=== PATIENT | female | born 1995 | race Caucasian/White ===

== ENCOUNTER 2017-04-15 10:20 | Inpatient (IN) | payer MEDICAID ==
[2017-04-15] MEDS ORDERED: RINGERS SOLUTION,LACTATED 1,000 ML IV PRN (10:43)
[2017-04-15] MEDS ORDERED: PENICILLIN G POTASSIUM 5,000,000 UNIT in DEXTROSE 5%-WATER 100 ML IV ONE (10:43)
[2017-04-15] MEDS ORDERED: RINGERS SOLUTION,LACTATED 300 ML IV ONE (10:43)
[2017-04-15] MEDS ORDERED: OXYTOCIN/NORMAL SALINE 20 UNIT/1,000 ML RTUINJ IV PRN (10:43)
[2017-04-15 11:23] LABS: APPEARANCE,URINE CLOUDY; BILIRUBIN,URINE NEGATIVE (NEGATIVE); COLOR,URINE YELLOW; GLUCOSE, URINE NEGATIVE (NEGATIVE); KETONES,URINE NEGATIVE (NEGATIVE); LEUKOCYTE ESTERASE,URINE LARGE (NEGATIVE); NITRITE,URINE NEGATIVE (NEGATIVE); PROTEIN,URINE NEGATIVE (NEGATIVE); URINE SPECIFIC GRAVITY 1.004; UROBILINOGEN,URINE NEGATIVE mg/dL (<2.0)
[2017-04-15 11:26] LABS: ABSOLUTE BASOPHILS # (AUTO) 0.1 10^3/uL (0.0-0.2); ABSOLUTE LYMPHOCYTES (AUTO) 2.1 10^3/uL (0.5-4.7); ABSOLUTE MONOCYTES (AUTO) 0.8 10^3/uL (0.1-1.4); ABSOLUTE NEUT (AUTO) 7.9 10^3/uL (1.7-8.2); EOSINOPHILS % (AUTO) 0.3 % (0-6); HEMOGLOBIN 11.4 g/dL (12.0-15.5); LYMPHOCYTES % (AUTO) 19.3 % (13-45); MEAN CORPUSCULAR HEMOGLOBIN 31.8 pg (27.0-33.4); MEAN CORPUSCULAR HGB CONC 34.6 g/dL (32.0-36.0); MEAN CORPUSCULAR VOLUME 92 fl (80-97); MONOCYTES % (AUTO) 7.7 % (3-13); PLATELET COUNT 279 10^3/uL (150-450); RED BLOOD COUNT 3.59 10^6/uL (3.72-5.28); RED CELL DISTRIBUTION WIDTH 13.1 % (11.5-14.0); SEGMENTED NEUTROPHILS % (AUTO) 71.7 % (42-78); TOTAL CELLS COUNTED % (AUTO) 100 %
[2017-04-15 11:40] LABS: URINE AMPHETAMINES SCREEN NEGATIVE; URINE BARBITURATES SCREEN NEGATIVE; URINE BENZODIAZEPINES SCREEN NEGATIVE; URINE COCAINE SCREEN NEGATIVE; URINE MARIJUANA (THC) SCREEN NEGATIVE; URINE METHADONE SCREEN NEGATIVE; URINE PHENCYCLIDINE SCREEN NEGATIVE
[2017-04-15] MEDS ORDERED: MISOPROSTOL 0.1 MG TABLET PO ONE (11:45)
[2017-04-15] MEDS ORDERED: MISOPROSTOL 0.1 MG TABLET PV ONE (11:45)
[2017-04-15] MEDS ORDERED: MISOPROSTOL 0.1 MG TABLET ONE (12:42)
--- NOTE | 2017-04-15 15:34 | L&D Progress Notes ---
PROGRESS NOTES Datetime Report Generated by CPN: 04/15/2017 15:34 PROGRESS NOTE Comment: update FHTs 165 with average variability 200 ml iv fluid bolus afebrile uterine contractions 1-3 min with irritability will cont to monitor VAGINAL EXAM Dilatation: 1 Effacement: 50 Station: -2 MEMBRANES Membranes: Intact FETUS A Monitoring: External US FHR Category: Category I : 40.3 Presentation: Vertex SIGNATURE SIGNATURE: [id number] Assignment: Maritza Anderson MD Signature: with User ID: Harris : with User ID: Harris
--- NOTE | 2017-04-15 15:43 | L&D Progress Notes ---
PROGRESS NOTES Datetime Report Generated by CPN: 04/15/2017 15:43 PROGRESS NOTE Comment: update tracing improved after 200 cc iv fluid bolus FHTs with accelerations 155-160s average variability continue with present management FETUS C SIGNATURE: [id number] Assignment: Maritza Anderson MD Signature: with User ID: [email or web address] : with User ID: [email or web address]
--- NOTE | 2017-04-15 17:03 | L&D Progress Notes ---
PROGRESS NOTES Datetime Report Generated by CPN: 04/15/2017 17:03 PROGRESS NOTE Plan: Induction; Cervical Ripening Informed Consent Obtained: Vaginal Delivery; Risks, Benefits and Alternatives Discussed Comment: update FHts reactive cervix soft and midposition irregular contractions and irritability abdomen nontender pt may eat place cervidil at 1800 and start induction per protocol reviewed with pt VAGINAL EXAM Dilatation: 2 Effacement: 70 Station: -1 MEMBRANES Membranes: Intact FETUS A FHR - Baseline: 160 Monitoring: External US Variability: Moderate 6-25bpm Accelerations: 15X15 Decelerations: None FHR Category: Category I FETUS C SIGNATURE: [id number] Assignment: Marizta Anderson MD Signature: with User ID: [email or web address] : with User ID: Harris
--- NOTE | 2017-04-15 17:08 | L&D Progress Notes ---
PROGRESS NOTES Datetime Report Generated by CPN: 04/15/2017 17:08 PROGRESS NOTE Comment: +3 DTRs no ruq pain +2 pitting edema vss denies headaches addendum to h and p FETUS C SIGNATURE: [id number] Assignment: Maritza Anderson MD Signature: with User ID: [email or web address] : with User ID: [email or web address]
[2017-04-15] MEDS ORDERED: DINOPROSTONE 10 MG VAGINAL INSERT.SR PV PRN (19:58)
[2017-04-15] MEDS ORDERED: DINOPROSTONE 10 MG VAGINAL INSERT.SR ONE (20:01)
[2017-04-15] MEDS ORDERED: ZOLPIDEM TARTRATE 5 MG TABLET PO ONE (22:14)
[2017-04-15] MEDS ORDERED: ZOLPIDEM TARTRATE 5 MG TABLET ONE (22:16)
[2017-04-16] MEDS ORDERED: PENICILLIN G-K 5 MILLION UNIT VIAL ONE ×4 (00:22→12:36)
[2017-04-16] MEDS ORDERED: NALBUPHINE HCL INJ 10 MG/1 ML AMPULE ONE (00:25)
[2017-04-16] MEDS ORDERED: PROMETHAZINE HCL INJ 25 MG/1 ML VIAL ONE ×3 (00:25→20:40)
[2017-04-16] MEDS ORDERED: OXYTOCIN/NORMAL SALINE 20 UNIT/1,000 ML RTUINJ ONE ×3 (00:26→16:56)
[2017-04-16] MEDS ORDERED: MISOPROSTOL 0.2 MG TABLET ONE ×2 (00:26→18:16)
[2017-04-16] MEDS ORDERED: LIDOCAINE 1% INJ-PF (10 MG/ML) 30 ML SDV ONE (00:26)
[2017-04-16] MEDS ORDERED: PROMETHAZINE HCL INJ 25 MG/1 ML VIAL IV ONE (00:46)
[2017-04-16] MEDS ORDERED: NALBUPHINE HCL INJ 10 MG/1 ML AMPULE INJ ONE (00:46)
[2017-04-16] MEDS ORDERED: OXYTOCIN/NORMAL SALINE 20 UNIT/1,000 ML RTUINJ IV PRN ×2 (00:48→16:36)
[2017-04-16] MEDS: PENICILLIN G POTASSIUM 2,500,000 UNIT in DEXTROSE 5%-WATER 50 ML IV SCH ×2 (01:41→04:29)
[2017-04-16] MEDS ORDERED: MEPERIDINE HCL/PF INJ 25 MG/1 ML DISP.SYRIN ONE (08:32)
[2017-04-16] MEDS ORDERED: PROMETHAZINE HCL INJ 25 MG/1 ML VIAL IV PRN ×4 (08:54→17:56)
[2017-04-16] MEDS ORDERED: DIPHENHYDRAMINE HCL 50 MG/ML VIAL IV ONE (08:54)
[2017-04-16] MEDS ORDERED: MEPERIDINE HCL/PF INJ 25 MG/1 ML DISP.SYRIN IV ONE (08:54)
--- NOTE | 2017-04-16 09:04 | L&D Progress Notes ---
PROGRESS NOTES Datetime Report Generated by CPN: 04/16/2017 09:03 PROGRESS NOTE Impression: Arrest of Dilatation/Descent Procedures: Intrauterine Pressure Catheter Plan Other: turn off pitocin, trendelenburg and hands/knees for 30 minutes Vital Signs : Reviewed Comment: Dr. Sanabria notified pt status VAGINAL EXAM Dilatation: 7 Effacement: 80 Station: -1 MEMBRANES Membranes: Ruptured Amniotic Fluid Color: Clear FETUS A FHR - Baseline: 150 Variability: Moderate 6-25bpm Decelerations: None FHR Comments: caput noted : 40.4 Estimated Weight (gm): 4300 FETUS C SIGNATURE: [id number] Assignment: Tomás Sanabria MD Signature: with User ID: Marys : with User ID: [email or web address]
[2017-04-16] MEDS ORDERED: ACETAMINOPHEN 325 MG TABLET PO PRN (16:36)
[2017-04-16] MEDS ORDERED: DIPH/PERTUSS(ACELL)/TETANUS VAC/PF 0.5 ML SYR (>=10YO) IM PRN (16:36)
[2017-04-16] MEDS ORDERED: HYDROMORPHONE HCL INJ/PF 2 MG/ML AMPULE IV PRN (16:36)
[2017-04-16] MEDS ORDERED: RINGERS SOLUTION,LACTATED 1,000 ML IV PRN (16:36)
[2017-04-16] MEDS ORDERED: MEASLES,MUMPS&RUBELLA VACC/PF 0.5 ML VIAL SUBCUT PRN (16:36)
[2017-04-16] MEDS ORDERED: SIMETHICONE 80 MG TAB.CHEW PO PRN (16:36)
[2017-04-16] MEDS ORDERED: OXYCODONE-ACETAMINOPHEN 5-325 MG TABLET PO PRN ×3 (16:36→17:56)
[2017-04-16] MEDS ORDERED: CITRIC ACID/SODIUM CITRATE ORAL SOLN 15 ML UDCUP ONE (16:37)
[2017-04-16] MEDS ORDERED: CEFAZOLIN 2 GM/D5W RTU 2 GM/50 ML RTUPB IV ONE (16:37)
[2017-04-16] MEDS ORDERED: OXYTOCIN 10 UNIT/ML VIAL ONE ×2 (16:55→17:41)
[2017-04-16] MEDS ORDERED: FENTANYL CITRATE INJ/PF 100 MCG/2 ML AMPUL ONE (16:55)
[2017-04-16] MEDS ORDERED: MIDAZOLAM 2 MG/2 ML INJ ONE (16:56)
[2017-04-16] MEDS ORDERED: KETOROLAC TROMETHAMINE INJ/PF 30 MG/1 ML SDV ONE ×2 (16:56→20:27)
[2017-04-16] MEDS ORDERED: EPHEDRINE SULFATE INJ 50 MG/1 ML AMPULE ONE (16:56)
[2017-04-16] MEDS ORDERED: ACETAMINOPHEN 100 ML IV ONE (16:56)
[2017-04-16] MEDS ORDERED: METHYLERGONOVINE MALEATE INJ/PF 0.2 MG/1 ML AMPULE ONE ×2 (16:56→18:49)
[2017-04-16] MEDS ORDERED: ONDANSETRON HCL INJ/PF 4 MG/2 ML SDV ONE (17:06)
[2017-04-16] MEDS ORDERED: LOPERAMIDE HCL 2 MG CAPSULE ONE (17:51)
[2017-04-16] MEDS ORDERED: CARBOPROST TROMETHAMINE INJ 250 MCG/1 ML AMPULE ONE (17:51)
[2017-04-16] MEDS ORDERED: MORPHINE SULFATE 10 MG/ML INJ IV PRN (17:56)
[2017-04-16] MEDS ORDERED: FENTANYL CITRATE INJ/PF 100 MCG/2 ML AMPUL IV PRN ×3 (17:56)
[2017-04-16] MEDS ORDERED: ONDANSETRON HCL INJ/PF 4 MG/2 ML SDV IV PRN (17:56)
[2017-04-16] MEDS ORDERED: MEPERIDINE HCL/PF INJ 25 MG/1 ML DISP.SYRIN IV PRN (17:56)
[2017-04-16] MEDS ORDERED: DIPHENHYDRAMINE HCL 50 MG/ML VIAL IV PRN (17:56)
[2017-04-16] MEDS ORDERED: KETOROLAC TROMETHAMINE INJ/PF 30 MG/1 ML SDV IV SCH (18:00)
--- NOTE | 2017-04-16 18:19 | Operative Report ---
Operative Report DATE OF SURGERY: 04/16/17 PREOPERATIVE DIAGNOSIS: Arrest of dilatation at 7 cm POSTOPERATIVE DIAGNOSIS: Persistent occiput posterior and arrest of dilatation OPERATION: Primary via low transverse uterine incision SURGEON: GEOVANNI GIRARD ANESTHESIA: Spinal TISSUE REMOVED OR ALTERED: Placenta COMPLICATIONS: Uterine atony ESTIMATED BLOOD LOSS: 250 cc INTRAOPERATIVE FINDINGS: Viable male direct OP 9 lbs. 13 oz. Apgars 8 and 9 normal uterus tubes and ovaries. There was uterine atony after delivery which was corrected with Pitocin Methergine Hemabate and Cytotec PROCEDURE: Patient was taken to the OR and placed in supine position after her spinal anesthesia. She is prepared and draped in sterile fashion. Ruggiero was placed for drainage of the bladder. Low transverse incision was made and carried down the level of the fascia. The fascial incision was made with knife and extended bilaterally with curved Owens scissors. The fascia was off the rectus muscles using sharp and blunt dissection. The rectus muscles are in the midline. The peritoneum was entered without incident. Bladder blade was placed in uterine segment was identified. A low transverse incision was made creating a bladder flap. Bladder blade was placed low transverse uterine incision was made with the csafe knife and extended with fingertips. The baby was delivered with some fundal pressure. Mouth and nose were suctioned free. The cord is doubly clamped and cut. Baby is passed off to the pit crew support worker in attendance. The placenta was manually extracted with trailing membranes. The uterus was externalized wrapped in a moist lap sponge. Uterine contents wiped free. Uterus was closed with a running locking layer of 0 chromic suture using the second layer to imbricate the first completing a double layer closure of the uterus. The serosa was closed with a running 2-0 chromic stitch. The uterus was noted to be very floppy so during the closure we gave the patient Pitocin then Methergine then some Cytotec and Hemabate and at that point the uterus firmed up. The pelvis was irrigated and suctioned free of fluid the uterus was replaced in the abdomen. The abdominal wall peritoneum was closed with running 2-0 chromic stitch. Fascia was closed with a running 0 Vicryl in 2 segments. Abundio's layer was brought together with 0 plain gut stitch and the skin was closed with running subcuticular 4-0 undyed Vicryl stitch. The wound was dressed mother and baby did well.
--- NOTE | 2017-04-16 18:33 | Delivery Summary ---
Del Sum A-C Datetime Report Generated by CPN: 04/16/2017 18:32 DELIVERY PERSONNEL DELIVERY PERSONNEL: [id number] Delivery Doctor:: Tomás Sanabria MD Anesthesiologist:: Sachin Cardenas MD PRE BILLING SPECIALIST:: Marleni Moran Labor and Delivery Nurse:: Kalyani Bernard RNaccount management specialist Nurse:: Rebecca Peoples RN Neonatal Nurse Practitioner:: YAHIR Chavez Nursery Nurse:: Ltaonya Tenorio RN Nursery Nurse:: Cari Caceres RN Design Intern/STEAM BLOCKER: ST Kristina Design Intern/STEAM BLOCKER: Key Rai, TRAILER DRIVER MATERNAL INFORMATION Delivery Anesthesia: Spinal Medications After Delivery: Pitocin 10 Units IM; Pitocin Bolus-Please Comment; Pitocin Drip 20 Units/1000ml NSS; Methergine 0.2mg IM; Other-Please Comment Meds After Delivery Comment: Cytotec 1000mcg PO in OR Hemabate 250mcg, Imodium 2mgPO Estimated Blood Loss (ml): 250 Maternal Complications: None LABOR SUMMARY EDC: 04/12/2017 00:00 No. Babies in Womb: 1 Attempted: No Labor Anesthesia: IV Sedation LABOR INFORMATION Reason for Induction: Indicated by Testing Cervical Ripening Agents: Cervidil; Cytotec @ Oxytocin: Induction Group B Beta Strep: positive Antibiotics # of Doses: 4 Antibiotics Time of Last Dose: 1238 Name of Antibiotic Given: PCN Steroids Given: None Reason Steroids Not Administered: Not Applicable MEMBRANES Membranes Rupture Method: Spontaneous Rupture of Membranes: 04/16/2017 03:30 Length of Rupture (hr): 14.05 Amniotic Fluid Color: Clear Amniotic Fluid Amount: Small Amniotic Fluid Odor: Normal STAGES OF LABOR Stage 3 hr: 0 Stage 3 min: 1 VAGINAL DELIVERY Episiotomy: None Laceration #1: None Laceration Extension #1: N/A Laceration Repair: Not Applicable CSECTION DELIVERY Primary Indication: Failure to progress Secondary Indication: N/A CSection Urgency: Non-Scheduled CSection Incidence: Primary Labor: Labor Elective: Elective CSection Incision: Lower Uterine Transverse BABY A INFORMATION Delivery Date/Time: 04/16/2017 17:33 Method of Delivery: Born in Route : No : N/A Forceps: N/A Vacuum Extraction: N/A Shoulder Dystocia : No PRESENTATION/POSITION BABY A Presentation: Cephalic Cephalic Presentation: Vertex Vertex Position: OP Breech Presentation: N/A PLACENTA INFORMATION BABY A Placenta Delivery Time : 04/16/2017 17:34 Placenta Method of Delivery: Manual Removal Placenta Status: Delivered SCORES BABY A Heart Rate 1 min: >100 bpm Resp Effort 1 min: Good Cry Reflex Irritability 1 min: Cough or Sneeze or Pulls Away Muscle Tone 1 min: Active Motion Color 1 min: Blue/Pale Resuscitation Effort 1 min: Tactile Stimulation SCORE 1 MIN: 8 Heart Rate 5 min: >100 bpm Resp Effort 5 min: Good Cry Reflex Irritability 5 min: Cough or Sneeze or Pulls Away Muscle Tone 5 min: Active Motion Color 5 min: Body [place], Extremities Blue Resuscitation Effort 5 min: Tactile Stimulation SCORE 5 MIN: 9 INFORMATION BABY A Gestational Age at Delivery: 40.4 Gestational Status: Full Term- 39- 40.6 Weeks Infant Outcome : Liveborn Infant Condition : Stable Infant Sex: Male IDENTIFICATION BABY A Infant Verification Date/Time: 04/16/2017 17:34 ID Band Number: [id number] Mother's Name Verified: Yes Infant RN Verifying : A Peoples RN A Babine RN WEIGHT/LENGTH BABY A Infant Birthweight (gm): 4450 Infant Weight (lb): 9 Infant Weight (oz): 13 Length (in): 20.50 Infant Length (cm): 52.07 CORD INFORMATION BABY A No. Cord Vessels: 3 Nuchal Cord : N/A Cord Blood Taken: Yes-For Eval (Mom's Blood Type - or O+) Suction: None ASSESSMENT BABY A Complications: Oligohydramnios Physical Findings at Delivery: Within Normal Limits Infant Respirations: Appears Normal Skin to Skin: Yes Skin to Skin Time (min): 5 Peanut Grader/ALS Called : No Care By: Seema Caceres RN Transferred To: Nursery BABY B INFORMATION : N/A SIGNATURES : I was personally available for consultation and serving as supervising physician for the MLP.
[2017-04-16 20:06] LABS: HEMATOCRIT 26.3 % (36.0-47.0); MEAN CORPUSCULAR HEMOGLOBIN 32.6 pg (27.0-33.4); MEAN CORPUSCULAR HGB CONC 34.5 g/dL (32.0-36.0); MEAN CORPUSCULAR VOLUME 95 fl (80-97); PLATELET COUNT 287 10^3/uL (150-450); RED BLOOD COUNT 2.78 10^6/uL (3.72-5.28); RED CELL DISTRIBUTION WIDTH 13.3 % (11.5-14.0)
[2017-04-16 20:25] LABS: ABSOLUTE LYMPHOCYTES# (MANUAL) 4.8 10^3/uL (0.5-4.7); ABSOLUTE MONOCYTES # (MANUAL) 2.3 10^3/uL (0.1-1.4); ABSOLUTE NEUTROPHILS# (MANUAL) 24.8 10^3/uL (1.7-8.2); BASOPHILS % (MANUAL) 0 % (0-2); EOSINOPHILS % (MANUAL) 1 % (0-6); LYMPHOCYTES % (MANUAL) 15 % (13-45); MONOCYTES % (MANUAL) 7 % (3-13); SEGMENTED NEUTROPHILS % (MAN) 77 % (42-78); TOTAL CELLS COUNTED 100
[2017-04-16 20:26] LABS: ANISOCYTOSIS SLIGHT; PLATELET COMMENT ADEQUATE; POLYCHROMASIA SLIGHT
[2017-04-16 20:28] LABS: WHITE BLOOD COUNT 32.2 10^3/uL (4.0-10.5)
[2017-04-16 20:29] LABS: HEMOGLOBIN 9.1 g/dL (12.0-15.5)
[2017-04-16] MEDS ORDERED: CEFTRIAXONE INJ 1000 MG VIAL ONE (20:40)
[2017-04-16] MEDS ORDERED: MORPHINE SULFATE 10 MG/ML INJ ONE (20:41)
--- NOTE | 2017-04-16 22:25 | Admission Physical ---
Datetime Report Generated by CPN: 04/16/2017 22:24 CURRENT ADMISSION Chief Complaint: Scheduled Induction of Labor Indication for Induction: Post Dates Indication for Induction: Term, Intrauterine ; Postterm, Intrauterine Admit Plan: Admit to Unit; Initiate Labor Induction Protocol ALLERGIES Medication Allergies: No Medication Allergies: No Known Allergies (04/15/2017) Latex: No Latex Allergies OBSTETRICAL HISTORY EDC: 04/12/2017 00:00 : 1 Para: 0 Term: 0 : 0 SAB: 0 IAB: 0 Ectopic: 0 Livin Cesareans: 0 VBACs: 0 Multiple Births: 0 Gestational Diabetes: No Rh Sensitization: No Incompetent Cervix: No BELINDA: No Infertility: No ART Treatment: No Uterine Anomaly: No IUGR: No Hx Previous C/S: No Macrosomia: No Hx Loss/Stillborn: No PIH: No Hx : No Placenta Previa/Abruption: No Depression/PP Depression: No PTL/PROM: No Post Hemorrhage: No Current Procedures: Ultrasound Obstetrical History Comments: G1- current, oligo SERINA 4.2 SEE RECORDS Alcohol: No Marijuana : No Cocaine: No Other Illicit Drugs: No Cigarettes: Never Smoker. [id number] MEDICAL HISTORY Diabetes: No Blood Transfusion: No Pulmonary Disease (Asthma, TB): No Breast Disease: No Hypertension: No Camp Tender Surgery: No Heart Disease: No Hosp/Surgery: No Autoimmune Disorder: No Anesthetic Complications: No Kidney Disease: Yes Abnormal Pap Smear: No Neuro/Epilepsy: No Psychiatric Disorders: No Other Medical Diseases: No Hepatitis/Liver Disease: No Significant Family History: No Varicosities/Phlebitis: No Trauma/Violence : No Thyroid Dysfunction: No INFECTIOUS HISTORY Gonorrhea: No Genital Herpes: No Chlamydia: No Tuberculosis: No Syphilis: Yes Hepatitis: No HIV/AIDS Exposure: No Rash or Viral Illness: No HPV: No Infectious History Comments: Positive RPR early in , her and partner treated, negative MISSY PHYSICAL EXAM General: Normal HEENT: Normal Neurologic: Normal Thyroid: Normal Heart: Normal Lungs: Normal Breast: Normal Back: Normal Abdomen: Normal Genitourinary Exam: Normal Extremities: Normal DTRs: Normal Pelvic Type: Adequate Vital Signs: Reviewed VAGINAL EXAM Dilatation: 7 Dilatation: 2 Dilatation: 1 Effacement: 80 Effacement: 70 Effacement: 50 Station: -1 Station: -1 Station: -2 MEMBRANES Membranes: Ruptured Membranes: Intact Membranes: Intact Amniotic Fluid Color: Clear FETUS A EGA: 40.3 Monitoring: External US FHR- Baseline: 160 Accelerations: 15X15 Decelerations: None FHR Category: Category I Estimated Weight (gm): 4300 Presentation: Vertex Admit Comment: 22 yo sent from office for equivocal nst and oligohydramnios EDC 04/12/17 EGA 40.3 +RPR positive third trimester/ neg early in received pcn x1 Gbs positive serina today at office 4.7 cm admit cytotec for cervical ripening- po and pv prophylaxis for gbs when labor starts poc reviewed with pt and spouse PLANS FOR LABOR AND DELIVERY Labor and Delivery: None Pain Management: Natural Other Pain Management Plans: would like to go as natural as possible Feeding Preference: Breast Benefit of Breast Feed Discussed: Yes Circumcision: Yes INFORMED CONSENT Informed Consent Obtained: Vaginal Delivery; Risks, Benefits and Alternatives Discussed Assignment: Maritza Anderson MD Signature: with User ID: [email or web address] anne : with User ID: [email or web address]
[2017-04-16] MEDS: OXYCODONE-ACETAMINOPHEN 5-325 MG TABLET PO PRN (22:42)
[2017-04-16] MEDS: METHYLERGONOVINE MALEATE 0.2 MG TABLET PO SCH (23:23)
[2017-04-16] MEDS ORDERED: PENICILLIN G-K 5 MILLION UNIT VIAL IV SCH (23:59)
[2017-04-17 01:34] LABS: HEMATOCRIT 23.8 % (36.0-47.0); HEMOGLOBIN 8.3 g/dL (12.0-15.5); INTERNATIONAL RATION (INR) 1.15; MEAN CORPUSCULAR HEMOGLOBIN 32.4 pg (27.0-33.4); MEAN CORPUSCULAR HGB CONC 34.9 g/dL (32.0-36.0); MEAN CORPUSCULAR VOLUME 93 fl (80-97); PLATELET COUNT 198 10^3/uL (150-450); PROTHROMBIN TIME 15.5 SEC (11.4-15.4); RED BLOOD COUNT 2.56 10^6/uL (3.72-5.28); RED CELL DISTRIBUTION WIDTH 13.3 % (11.5-14.0); WHITE BLOOD COUNT 18.1 10^3/uL (4.0-10.5)
[2017-04-17 01:35] LABS: PARTIAL THROMBOPLASTIN TIME 31.8 SEC (23.5-35.8)
[2017-04-17] MEDS: DOCUSATE SODIUM 100 MG CAPSULE PO SCH ×3 (01:41→17:27)
[2017-04-17] MEDS: METHYLERGONOVINE MALEATE 0.2 MG TABLET PO SCH ×3 (06:38→17:27)
[2017-04-17] MEDS ORDERED: CEFTRIAXONE INJ 1000 MG VIAL IV SCH (10:00)
[2017-04-17] MEDS ORDERED: CEFTRIAXONE 1 GM/D5W RTU 1 GM/50 ML RTUPB IV SCH (10:00)
[2017-04-17] MEDS ORDERED: CEFTRIAXONE SODIUM 1,000 MG in DEXTROSE 5%-WATER 50 ML IV SCH (10:00)
--- NOTE | 2017-04-17 10:40 | PDOC PROGRESS REPORT ---
Subjective-OB Subjective: Post Delivery Day: 1 22 year old. Denies any needs at this time, is due to void, states lochia is stable, waiting for breakfast to arrive, pain is moderately well controlled with current meds. Physical Exam (OB) Vital Signs: Temp Pulse Resp BP Pulse Ox 97.3 F 143 H 17 118/78 99 04/17/17 07:34 04/17/17 07:34 04/17/17 07:34 04/17/17 07:34 04/17/17 07:34 Intake & Output 04/16/17 04/17/17 04/18/17 06:59 06:59 06:59 Intake Total 2175 Output Total 1900 Balance 275 Weight 81.647 kg - Dressing Removed: No Incision: Dressing Closure Type: honeycomb - Lochia Lochia Amount: Small 10-25 ml Lochia Color: Rubra/Red - Abdomen Description: Tender, Soft, Round Hernia Present: No Fundal Description: Firm, Midline Fundal Height: u/u - u/2 Objective-Diagnostic Laboratory: 04/17/17 01:15 04/15/17 04/16/17 04/16/17 11:13 18:40 19:50 WBC Cancelled 32.2 H* D RBC Cancelled 2.78 L Hgb Cancelled 9.1 L D Hct Cancelled 26.3 L MCV Cancelled 95 MCH Cancelled 32.6 MCHC Cancelled 34.5 RDW Cancelled 13.3 Plt Count Cancelled 287 Seg Neutrophils % Cancelled Not Reportable Lymphocytes % Cancelled Not Reportable Monocytes % Cancelled Not Reportable Eosinophils % Cancelled Not Reportable Basophils % Cancelled Not Reportable Absolute Neutrophils Cancelled Not Reportable Absolute Lymphocytes Cancelled Not Reportable Absolute Monocytes Cancelled Not Reportable Absolute Eosinophils Cancelled Not Reportable Absolute Basophils Cancelled Not Reportable Blood Type O POSITIVE Antibody Screen NEGATIVE 04/17/17 04/17/17 01:14 01:15 WBC 18.1 H 18.1 H RBC 2.56 L 2.56 L Hgb 8.3 L 8.3 L Hct 23.8 L 23.8 L MCV 93 93 MCH 32.4 32.4 MCHC 34.9 34.9 RDW 13.3 13.3 Plt Count 198 198 Seg Neutrophils % 77.8 Lymphocytes % 11.3 L Monocytes % 10.6 Eosinophils % 0.0 Basophils % 0.3 Absolute Neutrophils 14.0 H Absolute Lymphocytes 2.0 Absolute Monocytes 1.9 H Absolute Eosinophils 0.0 Absolute Basophils 0.1 Blood Type Antibody Screen Assessment and Plan(PN) - Assessment and Plan (1) delivery delivered Is this a current diagnosis for this admission?: Yes Plan: routine post op care - Time Spent with Patient Time with patient: Less than 15 minutes Critical Time spent with patient: Less than 15 minutes Medications reviewed and adjusted accordingly: Yes - Disposition Anticipated Discharge: Home Within: within 24 hours
[2017-04-17] MEDS: KETOROLAC TROMETHAMINE INJ/PF 30 MG/1 ML SDV IV SCH ×2 (11:18→17:27)
[2017-04-17] MEDS: PRENATAL VITAMIN W DHA CAPSULE PO SCH (11:18)
[2017-04-17] MEDS: CEFTRIAXONE SODIUM 1,000 MG in NORMAL SALINE 50 ML IV SCH ×2 (11:19→22:27)
[2017-04-17 14:39] LABS: PATH REVIEW PATHOLOGIST REVIEWED
[2017-04-17] MEDS ORDERED: IBUPROFEN 800 MG TABLET PO SCH (15:00)
[2017-04-17] MEDS: OXYCODONE-ACETAMINOPHEN 5-325 MG TABLET PO PRN (15:52)
[2017-04-17] MEDS: IBUPROFEN 800 MG TABLET PO SCH (23:06)
[2017-04-18] MEDS: IBUPROFEN 800 MG TABLET PO SCH (05:46)
[2017-04-18 10:20] LABS: ABSOLUTE BASOPHILS # (AUTO) 0.1 10^3/uL (0.0-0.2); ABSOLUTE LYMPHOCYTES (AUTO) 1.4 10^3/uL (0.5-4.7); ABSOLUTE MONOCYTES (AUTO) 1.5 10^3/uL (0.1-1.4); ABSOLUTE NEUT (AUTO) 15.8 10^3/uL (1.7-8.2); BASOPHILS % (AUTO) 0.3 % (0-2); EOSINOPHILS % (AUTO) 0.2 % (0-6); HEMATOCRIT 22.2 % (36.0-47.0); LYMPHOCYTES % (AUTO) 7.3 % (13-45); MEAN CORPUSCULAR HEMOGLOBIN 32.3 pg (27.0-33.4); MEAN CORPUSCULAR HGB CONC 35.1 g/dL (32.0-36.0); MEAN CORPUSCULAR VOLUME 92 fl (80-97); MONOCYTES % (AUTO) 8.2 % (3-13); PLATELET COUNT 244 10^3/uL (150-450); RED BLOOD COUNT 2.41 10^6/uL (3.72-5.28); RED CELL DISTRIBUTION WIDTH 13.6 % (11.5-14.0); TOTAL CELLS COUNTED % (AUTO) 100 %; WHITE BLOOD COUNT 18.8 10^3/uL (4.0-10.5)
[2017-04-18 10:43] LABS: HEMOGLOBIN 7.8 g/dL (12.0-15.5)
[2017-04-18] MEDS: DOCUSATE SODIUM 100 MG CAPSULE PO SCH (10:51)
[2017-04-18] MEDS: CEFTRIAXONE SODIUM 1,000 MG in NORMAL SALINE 50 ML IV SCH (11:14)
[2017-04-18] MEDS: PRENATAL VITAMIN W DHA CAPSULE PO SCH (11:16)
--- NOTE | 2017-04-18 11:37 | PDOC DISCHARGE SUMMARY ---
Final Diagnosis Discharge Date: 04/18/17 - Final Diagnosis (1) delivery delivered Is this a current diagnosis for this admission?: Yes Discharge Data - Discharge Medication Home Medications: No Home Medications 04/15/17 Reason(s) for Admission: Induction of Labor - oligo @ 40w3d Procedures: NST, Ultrasound Intrapartum Procedure(s): : Low Cervical, Transverse - Diagnosis Test Laboratory: Temp Pulse Resp BP Pulse Ox 97.8 F 102 H 18 123/65 100 04/18/17 09:04 04/18/17 09:04 04/18/17 09:04 04/18/17 09:04 04/18/17 09:04 04/15/17 04/15/17 04/16/17 10:55 11:13 18:40 RBC 3.59 L Cancelled Hgb 11.4 L Cancelled Hct 33.0 L Cancelled Urine Opiates Screen NEGATIVE 04/16/17 04/17/17 04/17/17 19:50 01:14 01:15 RBC 2.78 L 2.56 L 2.56 L Hgb 9.1 L D 8.3 L 8.3 L Hct 26.3 L 23.8 L 23.8 L Urine Opiates Screen 04/18/17 10:07 RBC 2.41 L Hgb 7.8 L Hct 22.2 L Urine Opiates Screen - Discharge information/Instructions Discharge Activity: Activity As Tolerated, Balance Activity w/Rest, No Driving, No Lifting Over 10 Pounds, No Lifting/Push/Pulling, Pelvic Rest, No tub bath, Walk Frequently Discharge Diet: Regular Disposition: HOME, SELF-CARE Follow [facility] with: [facility]: [facility], Days - incision check
[2017-04-18 12:58] VITALS: BP 125/72
== END 2017-04-18 13:27 | disposition home or self-care (01) | DRG 765 ==
LOC: LC 10:20 → LR 10:29 → 2S 04-16 21:40
PROVIDERS: ADMIT Obstetrics & Gynecology; ATTEND Obstetrics & Gynecology
PROC: 3E0P7GC Introduction of Other Therapeutic Substance into Female Reproductive, Via Natural or Artificial Opening (ICD-10-PCS; 2017-04-15)
PROC: 4A1HXCZ Monitoring of Products of Conception, Cardiac Rate, External Approach (ICD-10-PCS; 2017-04-15)
PROC: 10D00Z1 Extraction of Products of Conception, Low, Open Approach (ICD-10-PCS; principal; 2017-04-16)
PROC: 30233N1 Transfusion of Nonautologous Red Blood Cells into Peripheral Vein, Percutaneous Approach (ICD-10-PCS; 2017-04-16)
DX: O64.0XX0 Obstructed labor due to incomplete rotation of fetal head, not applicable or unspecified (principal); O41.03X0 Oligohydramnios, third trimester, not applicable or unspecified; O62.1 Secondary uterine inertia; O75.4 Other complications of obstetric surgery and procedures; R00.0 Tachycardia, unspecified; O62.2 Other uterine inertia; O48.0 Post-term pregnancy; O99.824 Streptococcus B carrier state complicating childbirth; Z3A.40 40 weeks gestation of pregnancy; Z37.0 Single live birth
CPT/HCPCS: 1961; 36415; 36430; 80307; 81005; 85025; 85027; 85610; 85730; 86592; 86850; 86900; 86901; 86920; 94799; J0131; J0690; J0696; J1885; J2175; J2210; J2250; J2270; J2300; J2405; J2540; J2550; J2590; J3010; J3490; J7120; P9016